=== PATIENT | male | born 1955 | race Caucasian/White ===

== ENCOUNTER 2019-11-25 09:19 | Emergency (ER) | payer MEDICARE, BC ==
[~2019-11-25] VITALS: Ht 175.3 cm; Wt 82.3 kg
[~2019-11-25 09:19] MED LIST: ASPI81TA44 PO; BUPR300T53 PO; CALC-1135 PO; EVOL140P3; FLUT16SP2 BOTHNARES; HYDR-4383 PO; METO-467 PO; NITR0.4T51 SL
[2019-11-25 09:53] LABS: BASOPHILS % (AUTO) 0.7 % (0-1); EOSINOPHILS # (AUTO) 0.1 X10'3 (0-0.9); EOSINOPHILS % (AUTO) 1.3 % (0-6); HEMATOCRIT 42.3 % (42.0-52.0); HEMOGLOBIN 14.3 g/dl (14.0-17.9); LYMPHOCYTES % (AUTO) 15.3 % (21-51); MEAN CORPUSCULAR HEMOGLOBIN 33.6 PG (27.0-31.0); MEAN CORPUSCULAR HGB CONC 33.9 g/dL (33.0-36.5); MEAN PLATELET VOLUME 7.4 FL (7.4-10.4); MONOCYTES # (AUTO) 0.7 X10'3 (0-0.9); MONOCYTES % (AUTO) 10.2 % (2-12); NEUTROPHILS # (AUTO) 4.7 X10'3 (1.8-7.7); NEUTROPHILS % (AUTO) 72.5 % (42-75); PLATELET COUNT 227 X10'3 (140-440); RED BLOOD COUNT 4.27 X10'6 (4.70-6.10); RED CELL DISTRIBUTION WIDTH 13.5 % (11.5-14.5); WHITE BLOOD COUNT 6.5 X10'3 (4.5-11.0)
[2019-11-25 10:11] LABS: D-DIMER 0.37 MG/L FEU (0-0.50)
[2019-11-25 10:14] LABS: ALANINE AMINOTRANSFERASE 33 U/L (12-78); ALBUMIN 4.2 G/DL (3.4-5.0); ALBUMIN/GLOBULIN RATIO 1.1 (1.1-1.5); ALKALINE PHOSPHATASE 91 IU/L (46-116); ANION GAP 9 (8-16); ASPARTATE AMINO TRANSFERASE 30 U/L (10-37); BILIRUBIN,TOTAL 0.6 MG/DL (0.1-1.0); BLOOD UREA NITROGEN 16 MG/DL (7-18); BUN/CREATININE RATIO 16.8 (5.4-32.0); C-REACTIVE PROTEIN 0.22 MG/DL (0.0-0.5); CALCIUM 9.2 MG/DL (8.5-10.1); CHLORIDE 105 MMOL/L (99-107); CREATININE 0.95 MG/DL (0.60-1.10); GLUCOSE 147 MG/DL (70-104); POTASSIUM 3.8 MMOL/L (3.5-5.1); SODIUM 139 MMOL/L (135-145); TOTAL CARBON DIOXIDE 25.1 MMOL/L (24-32); eGFR 80 ML/MIN
[2019-11-25] MEDS ORDERED: LORazepam 2 mg/ml vial IV ONE ×2 (10:25)
--- NOTE | 2019-11-25 10:56 | NUR ---
pt resting in bed quietly ,vitals within normal range ,will cont to monitor.
[2019-11-25 12:12] VITALS: BP 105/76
== END 2019-11-25 12:05 | disposition home or self-care (01) ==
LOC: ER 09:19
DX: R07.89 Other chest pain (principal); R42 Dizziness and giddiness; I25.10 Atherosclerotic heart disease of native coronary artery without angina pectoris; E78.00 Pure hypercholesterolemia, unspecified; I10 Essential (primary) hypertension; I25.2 Old myocardial infarction; Z88.6 Allergy status to analgesic agent; Z88.8 Allergy status to other drugs, medicaments and biological substances; Z79.82 Long term (current) use of aspirin; Z79.899 Other long term (current) drug therapy
CPT/HCPCS: 36415; 71045; 80053; 84484; 85025; 85379; 86140; 93005; 96374; 99285; J2060

== ENCOUNTER 2022-04-14 06:25 | Day surgery (SDC) | payer MEDICARE, BC ==
[2022-04-13 12:09] LABS: BASOPHILS % (AUTO) 0.6 % (0-1); EOSINOPHILS # (AUTO) 0.1 X10'3 (0-0.9); EOSINOPHILS % (AUTO) 1.2 % (0-6); HEMATOCRIT 42.1 % (42.0-52.0); LYMPHOCYTES # (AUTO) 1.2 X10'3 (1.1-4.8); LYMPHOCYTES % (AUTO) 17.7 % (21-51); MEAN CORPUSCULAR HEMOGLOBIN 32.1 PG (27.0-31.0); MEAN CORPUSCULAR HGB CONC 33.3 g/dL (33.0-36.5); MEAN CORPUSCULAR VOLUME 96.4 FL (78-98); MEAN PLATELET VOLUME 7.3 FL (7.4-10.4); MONOCYTES # (AUTO) 0.6 X10'3 (0-0.9); NEUTROPHILS % (AUTO) 71.5 % (42-75); PLATELET COUNT 294 X10'3 (140-440); RED BLOOD COUNT 4.37 X10'6 (4.70-6.10); RED CELL DISTRIBUTION WIDTH 14.3 % (11.5-14.5)
[2022-04-13 12:16] LABS: APTT 30 SECONDS (22-32)
[2022-04-13 12:17] LABS: ALANINE AMINOTRANSFERASE 25 U/L (12-78); ALBUMIN 4.1 G/DL (3.4-5.0); ALBUMIN/GLOBULIN RATIO 1.1 (1.1-1.5); ALKALINE PHOSPHATASE 75 IU/L (46-116); ANION GAP 10 (8-16); ASPARTATE AMINO TRANSFERASE 22 U/L (10-37); BILIRUBIN,TOTAL 0.5 MG/DL (0.1-1.0); BLOOD UREA NITROGEN 14 MG/DL (7-18); BUN/CREATININE RATIO 17.1 (5.4-32.0); CALCIUM 9.3 MG/DL (8.5-10.1); CHLORIDE 105 MMOL/L (99-107); CREATININE 0.82 MG/DL (0.60-1.10); GLUCOSE 94 MG/DL (70-104); POTASSIUM 4.1 MMOL/L (3.5-5.1); SODIUM 140 MMOL/L (135-145); TOTAL CARBON DIOXIDE 25.4 MMOL/L (24-32); TOTAL PROTEIN 7.9 G/DL (6.4-8.2); eGFR > 90 ML/MIN
[2022-04-14] VITALS (11 sets, daily range): BP systolic 89–134; BP diastolic 54–89
[~2022-04-14] VITALS: Ht 175.3 cm; Wt 85.5 kg
[2022-04-14] MEDS ORDERED: MIDAZolam 1mg/ml 10ml vial IV ONE (07:10)
[2022-04-14] MEDS ORDERED: amiodarone 150mg/dext, iso-os 100 ML IV ONE (07:10)
[2022-04-14] MEDS ORDERED: morphine 10mg/ml inj. IV ONE (07:10)
[2022-04-14] MEDS ORDERED: atropine 0.1mg/ml 10ml syringe IV ONE (07:10)
[2022-04-14] MEDS ORDERED: diphenhydrAMINE 25mg capsule PO ONE (07:10)
[2022-04-14] MEDS ORDERED: LORazepam 0.5 MG tablet PO ONE (07:10)
[2022-04-14] MEDS ORDERED: CHOL20004 PO (07:24)
[2022-04-14] MEDS ORDERED: DILT120C19 PO (07:24)
[2022-04-14] MEDS ORDERED: APIX5TAB3 PO (07:24)
[2022-04-14] MEDS ORDERED: ESOM20CA38 PO (07:24)
[2022-04-14] MEDS ORDERED: ACET-1015 PO (07:24)
[2022-04-14] MEDS ORDERED: FEXO-271 PO (07:24)
[2022-04-14] MEDS ORDERED: CLOP75TA34 PO (07:24)
[2022-04-14] MEDS ORDERED: SOTA80TA73 PO (07:24)
== END 2022-04-14 11:15 | disposition home or self-care (01) ==
LOC: SSTAY O 06:25
PROVIDERS: ATTEND Internal Medicine Cardiovascular Disease
DX: I48.0 Paroxysmal atrial fibrillation (principal); I25.10 Atherosclerotic heart disease of native coronary artery without angina pectoris; I10 Essential (primary) hypertension; E78.5 Hyperlipidemia, unspecified; K21.9 Gastro-esophageal reflux disease without esophagitis; Z79.899 Other long term (current) drug therapy; Z98.890 Other specified postprocedural states; Z95.5 Presence of coronary angioplasty implant and graft; Z98.49 Cataract extraction status, unspecified eye
CPT/HCPCS: 36415; 80053; 85025; 85610; 85730; 92960; 93005; J2250; J2274; J7030; A4620

== ENCOUNTER 2022-06-23 11:15 | Inpatient (IN) | payer MEDICARE, BC ==
[~2022-06-23] VITALS: Ht 175.3 cm; Wt 81.0 kg
[~2022-06-23 11:15] MED LIST changes: +ACET-1015 PO; +APIX5TAB3 PO; -ASPI81TA44 PO; -BUPR300T53 PO; -CALC-1135 PO; +CHOL20004 PO; +CLOP75TA34 PO; +DILT120C19 PO; +ESOM20CA38 PO; +FEXO-271 PO; -FLUT16SP2 BOTHNARES; -HYDR-4383 PO; -METO-467 PO; +SOTA80TA73 PO
[2022-06-23 12:44] LABS: BASOPHILS % (AUTO) 0.3 % (0-1); EOSINOPHILS # (AUTO) 0.1 X10'3 (0-0.9); HEMATOCRIT 38.4 % (42.0-52.0); HEMOGLOBIN 12.5 g/dl (14.0-17.9); LYMPHOCYTES # (AUTO) 1.5 X10'3 (1.1-4.8); LYMPHOCYTES % (AUTO) 11.9 % (21-51); MEAN CORPUSCULAR HGB CONC 32.6 g/dL (33.0-36.5); MEAN PLATELET VOLUME 6.9 FL (7.4-10.4); MONOCYTES % (AUTO) 8.4 % (2-12); NEUTROPHILS # (AUTO) 9.7 X10'3 (1.8-7.7); NEUTROPHILS % (AUTO) 78.4 % (42-75); PLATELET COUNT 344 X10'3 (140-440); RED BLOOD COUNT 4.17 X10'6 (4.70-6.10); RED CELL DISTRIBUTION WIDTH 14.8 % (11.5-14.5); WHITE BLOOD COUNT 12.3 X10'3 (4.5-11.0)
[2022-06-23 13:03] LABS: ALANINE AMINOTRANSFERASE 20 U/L (12-78); ASPARTATE AMINO TRANSFERASE 16 U/L (10-37); BILIRUBIN,TOTAL 0.4 MG/DL (0.1-1.0); BLOOD UREA NITROGEN 23 MG/DL (7-18); BUN/CREATININE RATIO 22.3 (5.4-32.0); CALCIUM 9.2 MG/DL (8.5-10.1); CHLORIDE 103 MMOL/L (99-107); CREATININE 1.03 MG/DL (0.60-1.10); GLUCOSE 97 MG/DL (70-104); LIPASE 216 U/L (73-393); POTASSIUM 3.9 MMOL/L (3.5-5.1); SODIUM 137 MMOL/L (135-145); eGFR 72 ML/MIN
[2022-06-23 13:29] LABS: ALBUMIN/GLOBULIN RATIO 0.9 (1.1-1.5); ALKALINE PHOSPHATASE 102 IU/L (46-116); ANION GAP 12 (8-16); TOTAL CARBON DIOXIDE 22.5 MMOL/L (24-32); TOTAL PROTEIN 8.4 G/DL (6.4-8.2)
[2022-06-23] MEDS ORDERED: pantoprazole 40 MG vial IV ONE (15:05)
[2022-06-23] MEDS ORDERED: pantoprazole 40MG/NS 100ML BAG 100 ML IV ONE (15:20)
[2022-06-23 15:46] LABS: CLARITY,URINE CLEAR (Clear); COLOR,URINE YELLOW (Yellow); GLUCOSE, URINE NEGATIVE (Neg); KETONES,URINE TRACE mg/dl (Neg); LEUKOCYTE ESTERASE ,URINE NEGATIVE (Neg); NITRITES, URINE NEGATIVE (Neg); OCCULT BLOOD,URINE NEGATIVE (Neg); PH,URINE 5.5 (4.8-8.0); PROTEIN,URINE NEGATIVE (Neg); UROBILINOGEN,URINE 0.2 E.U/dL (0.2-1.0)
[2022-06-23 15:50] LABS: UA COLLECTION TYPE CLN CATCH MIDSTREAM
[2022-06-23] MEDS ORDERED: bisacodyl 10mg suppository rectal RC PRN (17:15)
[2022-06-23] MEDS ORDERED: ondansetron 4mg rapidly disintigrating tab PO PRN (17:15)
[2022-06-23] MEDS ORDERED: ondansetron/PF 4mg/2ml inj IV PRN (17:15)
[2022-06-23] MEDS ORDERED: HYDROcodone/acetaminophen 10/325mg tab PO PRN (17:15)
[2022-06-23] MEDS ORDERED: acetaminophen 325mg tablet PO PRN ×2 (17:15)
[2022-06-23] MEDS ORDERED: magnesium hydroxide 30ml (MOM) UD suspension PO PRN (17:15)
[2022-06-23] MEDS ORDERED: magnesium Cl slow-release 64mg tablet PO PRN (17:15)
[2022-06-23] MEDS ORDERED: potassium Cl 20 mEq SR tablet PO PRN ×2 (17:15)
[2022-06-23] MEDS ORDERED: mag hydrox/Alum hydrox/simeth 30ml oral suspension PO PRN (17:15)
[2022-06-23] MEDS ORDERED: HYDROmorphone inj. 0.5 MG/0.5 ML DISP.SYRIN IV PRN (17:15)
[2022-06-23] MEDS ORDERED: HYDROmorphone/PF 0.2 MG/ML SYRINGE IV PRN (17:15)
[2022-06-23] MEDS ORDERED: magnesium 4gm in 100ml NS 100 ML IV PRN (17:15)
[2022-06-23] MEDS ORDERED: HYDROcodone/acetaminophen 5mg/325mg tablet PO PRN (17:15)
[2022-06-23] MEDS ORDERED: acetaminophen 650mg rectal suppository RC PRN (17:15)
[2022-06-23] MEDS ORDERED: normal saline 1000ml 1,000 ML IV SCH (17:15)
[2022-06-23] MEDS ORDERED: metoclopramide 5 mg/ml inj IV PRN (17:15)
[2022-06-23] MEDS ORDERED: potassium Cl 40MEQ/1/2NS 520ml 520 ML IV PRN (17:15)
[2022-06-23 17:38] VITALS: BP 161/99
--- NOTE | 2022-06-23 18:15 | NUR ---
Patient went AMA,Dr. Wang aware AMA form signed,discussed risks and benefits of staying,patient reports he needs to take care of his pets at home.
[2022-06-23] MEDS ORDERED: K and/or MAG REPLACEMENT MC SCH (20:00)
[2022-06-23] MEDS ORDERED: temazepam 15mg capsule PO PRN (21:00)
[2022-06-23] MEDS ORDERED: pantoprazole 40MG/NS 100ML BAG 100 ML IV SCH (21:00)
[2022-06-24] MEDS ORDERED: DILT-88 PO (12:06)
== END 2022-06-23 18:15 | disposition left against medical advice (07) | DRG 813 ==
LOC: ER 11:15 → ED HOLD 17:27
PROVIDERS: ADMIT Family Medicine; ATTEND Family Medicine
DX: D68.32 Hemorrhagic disorder due to extrinsic circulating anticoagulants (principal); K92.2 Gastrointestinal hemorrhage, unspecified; E78.00 Pure hypercholesterolemia, unspecified; Z53.29 Procedure and treatment not carried out because of patient's decision for other reasons; K21.9 Gastro-esophageal reflux disease without esophagitis; T45.515A Adverse effect of anticoagulants, initial encounter; I10 Essential (primary) hypertension; I25.10 Atherosclerotic heart disease of native coronary artery without angina pectoris; I25.2 Old myocardial infarction; Z79.02 Long term (current) use of antithrombotics/antiplatelets; Z95.5 Presence of coronary angioplasty implant and graft; Z88.8 Allergy status to other drugs, medicaments and biological substances; Y92.89 Other specified places as the place of occurrence of the external cause
CPT/HCPCS: 36415; 71045; 80053; 81003; 83690; 85025; 96374; 99285; C9113; G0378; J7030

== ENCOUNTER 2022-06-23 22:21 | Inpatient (IN) | payer MEDICARE, BC ==
[~2022-06-23] VITALS: Ht 175.3 cm; Wt 81.6 kg
[2022-06-23 23:36] LABS: BASOPHILS % (AUTO) 0.3 % (0-1); EOSINOPHILS # (AUTO) 0.1 X10'3 (0-0.9); EOSINOPHILS % (AUTO) 0.7 % (0-6); HEMATOCRIT 32.3 % (42.0-52.0); HEMOGLOBIN 10.9 g/dl (14.0-17.9); LYMPHOCYTES # (AUTO) 1.3 X10'3 (1.1-4.8); LYMPHOCYTES % (AUTO) 8.4 % (21-51); MEAN CORPUSCULAR HEMOGLOBIN 31.1 PG (27.0-31.0); MEAN CORPUSCULAR HGB CONC 33.7 g/dL (33.0-36.5); MEAN CORPUSCULAR VOLUME 92.1 FL (78-98); MONOCYTES # (AUTO) 1.3 X10'3 (0-0.9); MONOCYTES % (AUTO) 8.6 % (2-12); NEUTROPHILS # (AUTO) 12.4 X10'3 (1.8-7.7); PLATELET COUNT 294 X10'3 (140-440); RED CELL DISTRIBUTION WIDTH 14.2 % (11.5-14.5); WHITE BLOOD COUNT 15.2 X10'3 (4.5-11.0)
[2022-06-24] VITALS (9 sets, daily range): BP systolic 105–143; BP diastolic 62–82
[2022-06-24] MEDS ORDERED: acetaminophen 650mg rectal suppository RC PRN (00:20)
[2022-06-24] MEDS ORDERED: mag hydrox/Alum hydrox/simeth 30ml oral suspension PO PRN (00:20)
[2022-06-24] MEDS ORDERED: ondansetron/PF 4mg/2ml inj IV PRN (00:20)
[2022-06-24] MEDS ORDERED: morphine 2 MG/ML inj. syringe IV PRN (00:20)
[2022-06-24] MEDS ORDERED: diphenhydrAMINE 25mg capsule PO PRN (00:20)
[2022-06-24] MEDS ORDERED: diphenhydrAMINE 50 mg/ml inj IV PRN (00:20)
[2022-06-24] MEDS ORDERED: magnesium hydroxide 30ml (MOM) UD suspension PO PRN (00:20)
[2022-06-24] MEDS ORDERED: HYDROcodone/acetaminophen 5mg/325mg tablet PO PRN (00:20)
[2022-06-24] MEDS ORDERED: ondansetron 4mg rapidly disintigrating tab PO PRN (00:20)
[2022-06-24] MEDS ORDERED: acetaminophen 325mg tablet PO PRN (00:20)
[2022-06-24] MEDS ORDERED: bisacodyl 10mg suppository rectal RC PRN (00:20)
[2022-06-24] MEDS ORDERED: octreotide inj. 500 MCG in normal saline 100ml IV soln 97.5 ML IV SCH (00:40)
[2022-06-24] MEDS ORDERED: human prothrombin complex-PCC 80 ML IV ONE (00:40)
[2022-06-24] MEDS ORDERED: tranexamic acid inj. 1,000 MG in normal saline 100ml IV soln 90 ML IV ONE (00:45)
[2022-06-24 01:23] LABS: APTT 26 SECONDS (22-32)
[2022-06-24 01:36] LABS: HEMOGLOBIN A1C 5.4 % (4.5-6.2)
[2022-06-24 01:38] LABS: MAGNESIUM 1.8 MG/DL (1.5-2.4); PHOSPHORUS 3.7 MG/DL (2.3-4.5)
[2022-06-24] MEDS: normal saline 1000ml 1,000 ML IV SCH ×3 (03:01→20:20)
[2022-06-24] MEDS: pantoprazole 40MG/NS 100ML BAG 100 ML IV SCH ×3 (03:04→10:34)
[2022-06-24] MEDS: acetaminophen 325mg tablet PO PRN ×2 (05:03→23:43)
--- NOTE | 2022-06-24 06:00 | NUR ---
PT REFUSING PROTONIX R/T NAUSEA EDUCATED PT ON ANTIEMETICS, PT REFUSED MD AWARE
[2022-06-24] MEDS ORDERED: docusate sod 100mg capsule PO SCH (08:00)
[2022-06-24] MEDS ORDERED: DILT-88 PO (12:06)
[2022-06-24] MEDS ORDERED: FENTANYL CITRATE/PF 50 MCG/1 ML VIAL ONE (12:56)
[2022-06-24] MEDS ORDERED: MIDAZolam 1 MG/ML 5ML VIAL ONE (12:56)
[2022-06-24] MEDS ORDERED: LIDOcaine Viscous 15ml cup ONE (12:56)
[2022-06-24] MEDS ORDERED: nitroGLYCERIN 0.4mg SUBLingual tab SL PRN (17:15)
[2022-06-24] MEDS ORDERED: pantoprazole 40mg IV 80 MG in normal saline 100ml IV soln 100 ML IV SCH (20:00)
[2022-06-24] MEDS: sotalol 80mg tablet PO SCH (20:00)
[2022-06-24] MEDS ORDERED: temazepam 15mg capsule PO PRN (21:00)
[2022-06-25 02:00] VITALS: BP 126/72
[2022-06-25 06:33] LABS: BASOPHILS % (AUTO) 0.4 % (0-1); EOSINOPHILS # (AUTO) 0.2 X10'3 (0-0.9); EOSINOPHILS % (AUTO) 1.5 % (0-6); HEMATOCRIT 29.2 % (42.0-52.0); LYMPHOCYTES # (AUTO) 1.1 X10'3 (1.1-4.8); LYMPHOCYTES % (AUTO) 10.7 % (21-51); MEAN CORPUSCULAR HEMOGLOBIN 31.8 PG (27.0-31.0); MEAN CORPUSCULAR HGB CONC 34.2 g/dL (33.0-36.5); MEAN PLATELET VOLUME 6.9 FL (7.4-10.4); MONOCYTES # (AUTO) 0.9 X10'3 (0-0.9); MONOCYTES % (AUTO) 8.5 % (2-12); NEUTROPHILS # (AUTO) 8.1 X10'3 (1.8-7.7); NEUTROPHILS % (AUTO) 78.9 % (42-75); PLATELET COUNT 267 X10'3 (140-440); RED BLOOD COUNT 3.14 X10'6 (4.70-6.10); RED CELL DISTRIBUTION WIDTH 14.8 % (11.5-14.5); WHITE BLOOD COUNT 10.2 X10'3 (4.5-11.0)
[2022-06-25 06:36] LABS: ALANINE AMINOTRANSFERASE 15 U/L (12-78); ALBUMIN 3.3 G/DL (3.4-5.0); ALBUMIN/GLOBULIN RATIO 0.9 (1.1-1.5); ALKALINE PHOSPHATASE 81 IU/L (46-116); ANION GAP 7 (8-16); ASPARTATE AMINO TRANSFERASE 15 U/L (10-37); BILIRUBIN,TOTAL 0.3 MG/DL (0.1-1.0); BLOOD UREA NITROGEN 13 MG/DL (7-18); BUN/CREATININE RATIO 16.7 (5.4-32.0); CALCIUM 7.8 MG/DL (8.5-10.1); CHLORIDE 108 MMOL/L (99-107); CHOL/HDL RATIO 2.1 (0.00-4.99); CHOLESTEROL 85 MG/DL (0-200); CREATININE 0.78 MG/DL (0.60-1.10); GLUCOSE 96 MG/DL (70-104); HDL CHOLESTEROL 41 MG/DL (35-60); LDL CHOLESTEROL 36 MG/DL (50-100); POTASSIUM 3.7 MMOL/L (3.5-5.1); SODIUM 140 MMOL/L (135-145); TOTAL PROTEIN 6.8 G/DL (6.4-8.2); TRIGLYCERIDES 94 MG/DL (20-135); eGFR > 90 ML/MIN
[2022-06-25] MEDS: sotalol 80mg tablet PO SCH (07:57)
[2022-06-25] MEDS ORDERED: diltiazem CD 120mg capsule (once-daily) PO SCH (08:00)
[2022-06-25] MEDS: normal saline 1000ml 1,000 ML IV SCH (08:45)
[2022-06-25] MEDS ORDERED: ESOM40CA PO (12:15)
[2022-06-25] MEDS ORDERED: NADO20TA36 PO (12:15)
--- NOTE | 2022-06-25 16:30 | NUR ---
Pt was discharged at 3:30pm vital sign was stable. hr 76 bp 123/67 r 18 T 97.3. pt left the hospital by wheelchair. pt called an uber.
--- NOTE | 2022-07-16 14:13 | NUR ---
Case Management DC follow up: Spoke with Patient via telephone. S/P Patient Reports: Denies: Acute/continuous CP, emergent SOB, resp distress,dyspnea, N/V, weakness, vertigo, syncope episodes, lightheadedness, TOM, blurry vision, s/s of stroke/BE-FAST, dysphagia, bladder pain, dysuria, retention, abdominal pain/distention, hematochezia, melena, unexplained bruising, bleeding, fever, chills.Verbalizes he has not stopped diltiazem as ordered, nor resumed taking Plavix, and/or Eliquis at this time.Verbalized his PCP , told him not to resume Plavix, Eliquis, nor take Nadolol.Verbalized Nadolol made him feel fatigued.Verbalized Dr. Shultz has ordered blood work.Patient verbalizes he is concerned he will have another episode of bleeding.Reviewed reasons with Patient as to why he was placed on Plavix.Patient accepted my offer of assistance to call for appointment.I talked to Yoko at Dr. Stover's office, and apprised her of Patient's issues with medications, and 's managing Patient's labs.Telephoned Patient and apprised him that Yoko from 's office will be calling him to set appointment.Patient verbalizes he has decided to restart Plavix at this time.Verbalizes understanding of s/s that warrant a 9-11/ER call for further evaluation.Patient verbalizes he will call in [place] to give update on recent hospitalization.Verbalized the nursing care was good. Needs met, questions/concerns addressed at DC; No further questions/concerns regarding recent hospital stay
== END 2022-06-25 15:22 | disposition home health service (06) | DRG 441 ==
LOC: ER 22:22 → ED HOLD 06-24 00:22 → PCU 3S 06-24 15:15
PROVIDERS: ADMIT Family Medicine; ATTEND Family Medicine
PROC: 0DB78ZX Excision of Stomach, Pylorus, Via Natural or Artificial Opening Endoscopic, Diagnostic (ICD-10-PCS; principal; 2022-06-24)
DX: K76.6 Portal hypertension (principal); K29.71 Gastritis, unspecified, with bleeding; D62 Acute posthemorrhagic anemia; N17.9 Acute kidney failure, unspecified; K74.69 Other cirrhosis of liver; K31.89 Other diseases of stomach and duodenum; E86.0 Dehydration; B18.2 Chronic viral hepatitis C; E78.00 Pure hypercholesterolemia, unspecified; F17.210 Nicotine dependence, cigarettes, uncomplicated; K21.9 Gastro-esophageal reflux disease without esophagitis; R82.4 Acetonuria; I12.9 Hypertensive chronic kidney disease with stage 1 through stage 4 chronic kidney disease, or unspecified chronic kidney disease; I25.10 Atherosclerotic heart disease of native coronary artery without angina pectoris; I48.0 Paroxysmal atrial fibrillation; N18.9 Chronic kidney disease, unspecified; Z79.01 Long term (current) use of anticoagulants; I25.2 Old myocardial infarction; Z79.02 Long term (current) use of antithrombotics/antiplatelets; Z95.5 Presence of coronary angioplasty implant and graft; Z88.8 Allergy status to other drugs, medicaments and biological substances; Z79.899 Other long term (current) drug therapy; Z71.6 Tobacco abuse counseling
CPT/HCPCS: 36415; 43239; 74176; 80053; 80061; 83036; 83735; 83880; 84100; 84484; 85025; 85610; 85730; 86885; 86900; 86901; 88305; 93306; 99152; 99285; A4620; C9113; G0378; J2250; J2354; J3010; J3490; J7030; J7040; J7168

== ENCOUNTER 2022-10-20 08:39 | Outpatient (CLI) | payer MEDICARE, BC ==
[~2022-10-20 08:39] MED LIST changes: -APIX5TAB3 PO; -CLOP75TA34 PO; -DILT120C19 PO; -ESOM20CA38 PO; +ESOM40CA PO; -EVOL140P3; -FEXO-271 PO; +NADO20TA36 PO
[2022-10-20 09:24] LABS: ALBUMIN 3.7 G/DL (3.4-5.0); ANION GAP 10 (8-16); BLOOD UREA NITROGEN 15 MG/DL (7-18); BUN/CREATININE RATIO 18.5 (10.0-20.0); CALCIUM 9.4 MG/DL (8.5-10.1); CHLORIDE 106 MMOL/L (99-107); CREATININE 0.81 MG/DL (0.60-1.10); GLUCOSE 95 MG/DL (70-104); POTASSIUM 4.2 MMOL/L (3.5-5.1); SODIUM 141 MMOL/L (135-145); TOTAL CARBON DIOXIDE 24.9 MMOL/L (24-32); eGFR > 90 ML/MIN
[2022-10-20] MEDS ORDERED: IODIXANOL 320 MG/ML INFUS..BTL 100ML IV ONE (10:25)
== END 2022-10-20 23:59 | disposition home or self-care (01) ==
LOC: RAD 08:39
PROVIDERS: ATTEND Internal Medicine Cardiovascular Disease
DX: I35.8 Other nonrheumatic aortic valve disorders (principal); I70.90 Unspecified atherosclerosis; J43.9 Emphysema, unspecified; K76.0 Fatty (change of) liver, not elsewhere classified; I48.91 Unspecified atrial fibrillation
CPT/HCPCS: 36415; 75572; 80048; J3490; Q9967

== ENCOUNTER 2025-01-26 11:05 | Day surgery (SDC) | payer MEDICARE, BC ==
[2025-01-16 10:52] VITALS: BP 145/87; PULSE 57; RESP 14; TEMP 97.8; O2SAT 97
[2025-01-16 11:11] LABS: MEAN PLATELET VOLUME 7.2 FL (7.4-10.4); RED CELL DISTRIBUTION WIDTH 12.9 % (11.5-14.5)
[2025-01-16 11:23] LABS: CREATININE 0.72 MG/DL (0.60-1.10); TOTAL CARBON DIOXIDE 23.2 MMOL/L (24-32); eCRCL 92 ML/MIN; eGFR > 90 ML/MIN
[2025-01-16 11:28] LABS: APTT 30 SECONDS (22-32); INR 1.1 INR
[2025-01-26] VITALS (15 sets, daily range): BP systolic 139–176; BP diastolic 81–100; PULSE 56–66; RESP 10–17; TEMP 98.2; O2SAT 96–99
[~2025-01-26] VITALS: Ht 175.3 cm; Wt 86.2 kg
[~2025-01-26 11:05] MED LIST changes: +APIX5TAB3 PO; -CHOL20004 PO; +CHOL200042 PO; +DOCU-149 PO; -ESOM40CA PO; +ESOM40CA66 PO; +EVOL140P3 SQ; +FERR324T23 PO; +FEXO180T94 PO; +HYDR-3965 PO; +METO50TA16 PO; +MIDAZolam 1mg/ml 10ml vial IV ONE; +MULT-1085 PO; -NADO20TA36 PO; -NITR0.4T51 SL; +fentaNYL/PF 50MCG/1 ML 2ML syringe IV ONE
[2025-01-26] MEDS ORDERED: METO-411 PO (11:29)
[2025-01-26 12:11] LABS: MEAN PLATELET VOLUME 7.2 FL (7.4-10.4); RED CELL DISTRIBUTION WIDTH 12.5 % (11.5-14.5)
[2025-01-26 12:22] LABS: INR 1.1 INR
[2025-01-26 12:29] LABS: CREATININE 0.78 MG/DL (0.60-1.10); TOTAL CARBON DIOXIDE 25.8 MMOL/L (24-32); eCRCL 88 ML/MIN; eGFR > 90 ML/MIN
[2025-01-26] MEDS: MIDAZolam 1mg/ml 10ml vial IV ONE (13:11)
[2025-01-26] MEDS: fentaNYL/PF 50MCG/1 ML 2ML syringe IV ONE (13:11)
[2025-01-26] MEDS: normal saline 1000ml 1,000 ML IV SCH (13:12)
[2025-01-26] MEDS ORDERED: ASPI81TA52 PO (13:50)
[2025-01-26] MEDS ORDERED: CLOP75TA34 PO (13:50)
--- NOTE | 2025-01-26 17:49 | CARDIOLOGY REPORT ---
APPROVED REPORT EXAM: Focused, limited transesophageal echocardiogram with color flow Doppler. 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 LEFT VENTRICLE Normal LV size and wall thickness. Overall systolic function is normal. LVEF is 60%. RIGHT VENTRICLE RV is normal size and function. ATRIA LA appears moderately dilated. 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 Left upper pulmonary vein identified. Successfully occluded left atrial appendage with well vis ualized Watchman device well positioned without thrombus. No residual flow detected around device in all views. PERICARDIUM Normal pericardium. No effusion. CONCLUSION Normal LV size and wall thickness. Overall systolic function is normal. LVEF is 60%. RV is normal siz e and function. LA appears moderately dilated. 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 Left upper pulmonary vein identified. Successfully occluded left atrial appenda ge with well visualized Watchman device well positioned without thrombus. No residual flow detected a round device in all views. Normal pericardium. No effusion. Conclusion Normal LV size and wall thickness. Overall systolic function is normal. LVEF is 60%. RV is normal size and function. LA appears moderately dilated. Intact interatrial septum with small L to R shunt s/p transseptal pun cture. Left upper pulmonary vein identified. Successfully occluded left atrial appendage with well visualized Watchman device well positioned without thrombus. No residual flow detected around device in all views. Normal pericardium. No effusion.
== END 2025-01-26 14:15 | disposition home or self-care (01) ==
LOC: SSTAY O 11:05
PROVIDERS: ATTEND Student in an Organized Health Care Education/Training Program
DX: I48.91 Unspecified atrial fibrillation (principal); E03.9 Hypothyroidism, unspecified; I10 Essential (primary) hypertension; E78.5 Hyperlipidemia, unspecified; Z86.73 Personal history of transient ischemic attack (TIA), and cerebral infarction without residual deficits; Z98.890 Other specified postprocedural states; Z79.899 Other long term (current) drug therapy
CPT/HCPCS: 36415; 80048; 85025; 85610; 85730; 93312; 93325; 94760; A4615; J2250; J3010; J7030; 93308